=== PATIENT | male | born 1970 | race Caucasian/White ===

== ENCOUNTER → 2016-08-10 | Outpatient (CLI) | payer BC ==
--- NOTE | 2016-08-10 16:17 | KCIC ---
MRI left elbow without contrast dated 08/10/2016. No comparison available. Clinical indication: Progressive lateral elbow pain. No known injury. TECHNIQUE: Routine multiplanar multisequence MR imaging of left elbow performed. No contrast administered. FINDINGS: Focal increased T2 signal and thickening of the common extensor tendon at its lateral epicondylar attachment. There is some mild interstitial partial tearing of anterior fibers. No full thickness tear or retracted tear. Radial ulnar collateral ligament and lateral ulnar collateral ligaments are somewhat thickened but otherwise intact. The common flexor tendon is intact. Medial ulnar collateral ligament is intact. Biceps tendon and brachialis tendons are intact. Distal triceps tendon is intact. No abnormality of the cubital tunnel or Guyon's canal. Bone marrow signal is homogeneous. No marrow edema. Articular cartilage is intact. No osteochondral defect. No joint effusion or loose body. IMPRESSION: 1. Mild lateral epicondylitis with mild interstitial partial tearing and the common extensor tendon attachment. 2. Otherwise no evidence of internal derangement. Electronically signed by: Benny Armendariz MD (08/10/2016 4:14 PM)
== END | disposition home or self-care (01) ==
LOC: KCIC MRI 15:02
PROVIDERS: ATTEND Family Medicine
DX: M77.12 Lateral epicondylitis, left elbow (principal)
CPT/HCPCS: 73221